=== PATIENT | female | born 1955 | race African-American/Black ===

== ENCOUNTER 2017-06-23 23:25 | Inpatient (IN) | payer OTHER ==
[~2017-06-23] VITALS: Ht 157.5 cm; Wt 74.7 kg
[2017-06-24 00:05] LABS: HEMATOCRIT 37.5 % (36.0-46.0); MCH 28.2 PG (29.0-34.0); MCHC 32.5 G/DL (30.0-36.0); MCV 86.8 FL (83-99); MEAN PLAT.VOLUME 9.4 uM^3 (9.5-12.4); PLATELET COUNT 229 K/uL (156-360); RBC DIS.WIDTH-CV 11.9 % (11.8-14.6); RBC DIS.WIDTH-SD 38.4 % (39-53); RED BLOOD COUNT 4.32 M/uL (3.80-5.20); WHITE BLOOD COUNT 6.5 K/uL (4.1-10.2)
[2017-06-24 00:15] LABS: CHLORIDE 105 mEq/L (99-109); POTASSIUM 3.4 mEq/L (3.7-5.4); SODIUM 140 mEq/L (136-147)
[2017-06-24 00:16] LABS: GLUCOSE 102 mg/dL (70-99)
[2017-06-24 00:18] LABS: ANION GAP 8 MEQ/L (2-14)
[2017-06-24 00:21] LABS: UREA NITROGEN (BUN) 16 mg/dL (9-23)
[2017-06-24 00:26] LABS: GFR ESTIMATE (CALCULATED) > 59 mL/min/
[2017-06-24 00:29] LABS: TROP-I INTERPRETATION NEGATIVE; TROPONIN-I < 0.01 ng/mL (0.0-0.30)
[2017-06-24 04:08] VITALS: BP 116/65
[2017-06-24 05:39] LABS: HEMATOCRIT 36.2 % (36.0-46.0); MCH 29.3 PG (29.0-34.0); MCHC 33.4 G/DL (30.0-36.0); MCV 87.7 FL (83-99); MEAN PLAT.VOLUME 9.8 uM^3 (9.5-12.4); PLATELET COUNT 225 K/uL (156-360); RBC DIS.WIDTH-CV 12.1 % (11.8-14.6); RBC DIS.WIDTH-SD 38.8 % (39-53); RED BLOOD COUNT 4.13 M/uL (3.80-5.20); WHITE BLOOD COUNT 5.6 K/uL (4.1-10.2)
[2017-06-24 06:00] LABS: ALKALINE PHOSPHATASE 79 IU/L (3-129); DIRECT BILIRUBIN 0.1 mg/dL (0.0-0.3); TOTAL BILIRUBIN 0.3 MG/DL (0.0-1.0)
[2017-06-24 06:00] LABS: ALKALINE PHOSPHATASE 83 IU/L (3-129); ANION GAP 5 MEQ/L (2-14); CHLORIDE 104 MEQ/L (99-109); GFR ESTIMATE (CALCULATED) > 59 mL/min/; GLUCOSE 89 mg/dL (70-99); POTASSIUM 3.9 MEQ/L (3.7-5.4); SAMPLE HEMOLYSIS CHECK 0; SAMPLE ICTERIC CHECK 0; SAMPLE LIPEMIA CHECK 0; SODIUM 139 MEQ/L (136-147); TOTAL BILIRUBIN 0.3 MG/DL (0.0-1.0); UREA NITROGEN (BUN) 14 mg/dL (9-23)
[2017-06-24 08:00] VITALS: BP 113/63
[2017-06-24 10:11] LABS: TROP-I INTERPRETATION NEGATIVE; TROPONIN-I < 0.01 ng/mL (0.0-0.30)
[2017-06-24 10:59] LABS: ADD MIUA? YES; BILIRUBIN NEGATIVE; BLOOD SMALL; COLOR STRAW ((YELLOW)); GLUCOSE (STRIP) NEGATIVE; KETONES NEGATIVE; LEUKOCYTES MODERATE; NITRITE NEGATIVE; PROTEIN (STRIP) NEGATIVE; SPECIFIC GRAVITY 1.026 (1.000-1.030); UROBILINOGEN 0.2 MG/DL (0.2-1.0)
[2017-06-24 11:52] LABS: BACTERIA NONE SEEN /HPF; EPITHELIAL CELLS RARE /HPF; MUCUS NONE SEEN /LPF; UCUL ADDED? NO
[2017-06-24 12:00] VITALS: BP 117/56
[2017-06-24 20:08] VITALS: BP 119/56
[2017-06-24 23:55] VITALS: BP 120/59
[2017-06-25 04:00] VITALS: BP 118/57
[2017-06-25 07:35] VITALS: BP 124/70
[2017-06-25 08:47] LABS: HEMATOCRIT 37.6 % (36.0-46.0); MCH 29.6 PG (29.0-34.0); MCHC 33.5 G/DL (30.0-36.0); MCV 88.3 FL (83-99); MEAN PLAT.VOLUME 9.7 uM^3 (9.5-12.4); PLATELET COUNT 212 K/uL (156-360); RBC DIS.WIDTH-CV 12.3 % (11.8-14.6); RBC DIS.WIDTH-SD 39.5 % (39-53); RED BLOOD COUNT 4.26 M/uL (3.80-5.20); WHITE BLOOD COUNT 4.7 K/uL (4.1-10.2)
[2017-06-25 09:34] LABS: ANION GAP 5 MEQ/L (2-14); CHLORIDE 107 MEQ/L (99-109); GFR ESTIMATE (CALCULATED) > 59 mL/min/; GLUCOSE 90 mg/dL (70-99); HDL CHOLESTEROL 44 MG/DL (Desirable>=50); LDL CHOLESTEROL 110 mg/dL (Desirable<100); NON-HDL CHOLESTEROL 126 mg/dL (Desirable<160); POTASSIUM 4.2 MEQ/L (3.7-5.4); SAMPLE HEMOLYSIS CHECK 0; SAMPLE ICTERIC CHECK 0; SAMPLE LIPEMIA CHECK 0; SODIUM 139 MEQ/L (136-147); TOTAL CHOLESTEROL 170 mg/dL (Desirable<200); TRIGLYCERIDES 78 MG/DL (Normal: <150); UREA NITROGEN (BUN) 10 mg/dL (9-23)
[2017-06-25] MEDS ORDERED: IBUPROFEN400 MG PO (10:41)
[2017-06-25] MEDS ORDERED: TRAMADOL HCL50 MG PO (10:42)
== END 2017-06-25 12:36 | disposition home or self-care (01) | DRG 313 ==
LOC: EME 23:25 → EDOF 06-24 03:10 → 4EAST 06-24 03:10 → ENRESERV 06-24 03:19 → 4EAST 06-24 03:59
PROVIDERS: Internal Medicine; Physician Assistant
DX: R07.89 Other chest pain (principal); K76.0 Fatty (change of) liver, not elsewhere classified; R29.2 Abnormal reflex; M47.26 Other spondylosis with radiculopathy, lumbar region; K76.9 Liver disease, unspecified; N89.8 Other specified noninflammatory disorders of vagina; M48.06 Spinal stenosis, lumbar region; D06.9 Carcinoma in situ of cervix, unspecified; J45.909 Unspecified asthma, uncomplicated; M25.512 Pain in left shoulder; M25.511 Pain in right shoulder; M25.561 Pain in right knee; R10.9 Unspecified abdominal pain; R53.1 Weakness
CPT/HCPCS: 71275; 72148; 72197; 74177; 74183; 80048; 80053; 80061; 80076; 81003; 84484; 85027; 93005; 99281; 99284; J1644; J7030

== ENCOUNTER → 2017-07-19 | Outpatient (CLI) | payer OTHER ==
[~2017-07-19] MED LIST: IBUPROFEN400 MG PO; TRAMADOL HCL50 MG PO
== END | disposition home or self-care (01) ==
LOC: MRI 13:07 → RAD 13:30 → MRI 13:30
DX: R93.5 Abnormal findings on diagnostic imaging of other abdominal regions, including retroperitoneum (principal)
CPT/HCPCS: 74183

== ENCOUNTER → 2017-07-28 | Outpatient (CLI) | payer OTHER | END | disposition home or self-care (01) | LOC: AMB 09:07 | DX: K76.9 Liver disease, unspecified (principal); N72 Inflammatory disease of cervix uteri; J45.20 Mild intermittent asthma, uncomplicated; Z82.61 Family history of arthritis; Z85.41 Personal history of malignant neoplasm of cervix uteri; Z82.49 Family history of ischemic heart disease and other diseases of the circulatory system; Z82.5 Family history of asthma and other chronic lower respiratory diseases | CPT/HCPCS: J0330; J2250; J2405; J3010 ==

== ENCOUNTER → 2017-07-29 | Outpatient (CLI) | payer OTHER | END | disposition home or self-care (01) | LOC: RAD 10:00 | DX: N85.8 Other specified noninflammatory disorders of uterus (principal) | CPT/HCPCS: 76856 ==

== ENCOUNTER 2017-11-02 17:44 | Emergency (ER) | payer OTHER ==
[~2017-11-02] VITALS: Ht 160 cm; Wt 73.6 kg
[2017-11-02 19:15] LABS: HEMATOCRIT 36.3 % (36.0-46.0); MCHC 33.6 G/DL (30.0-36.0); MCV 86.2 FL (83-99); MEAN PLAT.VOLUME 9.6 uM^3 (9.5-12.4); PLATELET COUNT 233 K/uL (156-360); RBC DIS.WIDTH-CV 12.5 % (11.8-14.6); RBC DIS.WIDTH-SD 38.9 % (39-53); RED BLOOD COUNT 4.21 M/uL (3.80-5.20); WHITE BLOOD COUNT 5.2 K/uL (4.1-10.2)
[2017-11-02 19:22] LABS: PROTHROMBIN TIME 11.7 SEC (10.2-12.9)
[2017-11-02 19:24] LABS: CHLORIDE 105 mEq/L (99-109); SODIUM 141 mEq/L (136-147)
[2017-11-02 19:26] LABS: GLUCOSE 99 mg/dL (70-99)
[2017-11-02 19:28] LABS: ANION GAP 12 MEQ/L (2-14); TOTAL BILIRUBIN 0.2 mg/dL (0.0-1.0)
[2017-11-02 19:30] LABS: ALKALINE PHOSPHATASE 103 IU/L (3-129); GFR ESTIMATE (CALCULATED) > 59 mL/min/
[2017-11-02 19:31] LABS: UREA NITROGEN (BUN) 13 mg/dL (9-23)
[2017-11-02 20:45] VITALS: BP 118/57
== END 2017-11-02 21:01 | disposition home or self-care (01) ==
LOC: EME 17:44
PROVIDERS: Emergency Medicine
DX: S20.211A Contusion of right front wall of thorax, initial encounter (principal); V49.9XXA Car occupant (driver) (passenger) injured in unspecified traffic accident, initial encounter; J45.909 Unspecified asthma, uncomplicated
CPT/HCPCS: 70450; 71260; 72125; 74177; 80053; 85027; 85610; 99281; 99285; J3010; J7030